=== PATIENT | female | born 1985 | race Two or more races ===

== ENCOUNTER 2016-03-08 20:15 | Emergency (ER) | payer OTHER ==
[2016-03-08] MEDS ORDERED: FAMOTIDINE 20 MG/NACL 50 ML IV ONE (20:43)
[2016-03-08] MEDS ORDERED: HYDROmorphONE/DILAUDID 1 MG/ML SYR IVP ONE (20:43)
[2016-03-08] MEDS ORDERED: NS 1,000 ML IV ONE ×2 (20:43)
[2016-03-08] MEDS ORDERED: ONDANSETRON 4 MG/2 ML VIAL IVP ONE (20:43)
--- NOTE | 2016-03-08 20:47 | EDPHY ---
[id number] 4d HPI Vomiting and diarrhea. 30-year-old female by private vehicle with a friend. She just returned from [place]. She has had nausea, vomiting and diarrhea since this morning. Multiple episodes of nonbilious, nonbloody vomiting. Multiple episodes of watery diarrhea. She was in [place] with her friend. Her friend contracted the same illness this morning as well. They both ate the same restaurant last night. Denies any bloody stool. No fever. No significant abdominal pain. ROS: Constitutional: No fever, no chills. No weakness. Eyes: No discharge. No changes in vision. ENT: No sore throat. No nasal congestion or rhinorrhea. Respiratory: No cough. No shortness of breath. Cardiac: No chest pain, no palpitations. Gastrointestinal: As above. Genitourinary: No hematuria. No dysuria or increased frequency with urination. Musculoskeletal: No back pain. No neck pain. No myalgias or arthralgias. Skin: No rashes. Neurological: No headache. No focal weakness or altered sensation. Past medical history: None. Social history: Here with a friend. Nonsmoker. Physical Exam: General Appearance: Alert, no distress. This patient is responding to questions appropriately and in full sentences. This patient appears well- hydrated and well-nourished. Eyes: Pupils equal and round no pallor or injection. No lid edema, erythema or injection. Gastrointestinal: Abdomen is soft and nontender, no masses, bowel sounds normal. No focal tenderness at McBurney's point. No Jack sign. Neurological: Motor sensory function is grossly intact. Cranial nerves are normal. Gait is normal. Skin: Warm and dry, no rashes. Musculoskeletal: Neck is supple and nontender. Extremities are symmetrical. All joints range without pain or impingement. Psychiatric: No agitation. No depression. Database: EKG: Imaging: Procedures: Emergency department course: IV placed. She was placed on a monitor. She was started on IV normal saline with 1-2 L to be given over the next 1-2 hours. She was initially given 4 mg of IV Zofran and 20 mg of IV Pepcid. She was given 0.25 mg of IV hydromorphone to slow her diarrhea. 9:00 p.m., patient was just started on her IV fluids. Care was turned over to Dr. Beti Bowden at this time. Expected disposition is discharge to home. Differential Diagnosis: The differential diagnosis on this patient includes but is not limited to food borne illness, traveler's diarrhea, viral gastroenteritis. Appendicitis, cholecystitis, bowel obstruction, other surgical etiology unlikely. This represents a partial list of diagnoses considered. These considerations are based on history, physical exam, past history, reassessment and diagnostic testing. (Michael Everett) Constitutional: Initial Vital Signs Temperature (C) 37.1 C 03/08/16 20:19 Heart Rate 73 03/08/16 20:19 Respiratory Rate 20 03/08/16 20:19 Blood Pressure 125/68 H 03/08/16 20:19 O2 Sat (%) 98 03/08/16 20:19 O2 Delivery Mode Room Air Allergies/Adverse Reactions: No Known Allergies Allergy (Unverified 03/08/16 20:18) Home Medications: Medication Instructions Recorded Control Pill 09/09/15 Hydrocodone/APAP 5/325 [Buchtel 1 each PO Q4-6PRN PRN #11 tab 09/09/15 5/325 (*)] Ondansetron Odt [Zofran Odt 4 mg 4 mg PO Q4PRN PRN #10 tab 03/08/16 (*)] - Data Points Laboratory Results: Laboratory Results 03/08/16 20:45 03/08/16 20:45 Medications Given: Discontinued Medications Hydromorphone HCl (Dilaudid) 0.25 mg IVP EDNOW ONE Stop: 03/08/16 20:44 Last Admin: 03/08/16 20:58 Dose: 0.25 mg Sodium Chloride (Ns) 1,000 mls @ 0 mls/hr IV ONCE ONE PRN Reason: Wide Open Stop: 03/08/16 20:44 Last Admin: 03/08/16 20:58 Dose: 1,000 mls Sodium Chloride (Ns) 1,000 mls @ 0 mls/hr IV ONCE ONE PRN Reason: Wide Open Stop: 03/08/16 20:44 Last Admin: 03/08/16 20:59 Dose: 1,000 mls Famotidine/Sodium Chloride (Pepcid 20 Mg (Premix)) 50 mls @ 200 mls/hr IV EDNOW ONE Stop: 01/16/17 20:57 Last Admin: 03/08/16 20:58 Dose: 50 mls Ondansetron HCl (Zofran) 4 mg IVP EDNOW ONE Stop: 03/08/16 20:44 Last Admin: 03/08/16 20:59 Dose: 4 mg Departure - Departure Disposition: Home, Routine, Self-Care Clinical Impression: Vomiting and diarrhea Condition: Good Instructions: Gastroenteritis (ED) Additional Instructions: Read and follow provided instructions. Follow-up with your primary care physician in 1-2 days for re-evaluation as needed. Take medication as prescribed for nausea. Return to the emergency department for vomiting and inability to keep fluids down despite medications, worsening abdominal pain or other serious concerns. Referrals: Helen Santos RN, SALES AUDIT CLERK [Primary Care Provider] - As per Instructions Prescriptions: Ondansetron Odt [Zofran Odt 4 mg (*)] 4 mg PO Q4PRN PRN #10 tab PRN Reason: For Nausea & Vomiting
[2016-03-08 20:58] LABS: % IMMATURE GRANULYOCYTES 0.3 % (0.0-1.1); ABSOLUTE IMMATURE GRANULOCYTES 0.03 10^3/uL (0.00-0.10); ADD DIFF? NO; ADD MORPH? NO; ADD SCAN? NO; ATYPICAL LYMPHOCYTE FLAG 10 (0-99); FRAGMENT RBC FLAG 0 (0-99); HEMATOCRIT 43.7 % (38.0-47.0); HEMOGLOBIN 14.8 g/dL (12.6-16.3); LEFT SHIFT FLG 0 (0-99); LIPEMIA HEMOLYSIS FLAG 90 (0-99); MEAN CELL HEMOGLOBIN 31.2 pg (27.9-34.1); MEAN CELL HEMOGLOBIN CONCENTR. 33.9 g/dL (32.4-36.7); MEAN CELL VOLUME 92.2 fL (81.5-99.8); MEAN PLATELET VOLUME 10.1 fL (8.7-11.7); PLATELET CLUMPS FLAG 0 (0-99); PLATELET COUNT 265 10^3/uL (150-400); RED BLOOD CELL COUNT 4.74 10^6/uL (4.18-5.33)
[2016-03-08 21:11] LABS: ANION GAP 13 mEq/L (8-16); CALCIUM 9.3 mg/dL (8.5-10.4); CARBON DIOXIDE 24 mEq/l (22-31); CHLORIDE 97 mEq/L (97-110); CREATININE 0.6 mg/dL (0.6-1.0); GLOMERULAR FILTRATION RATE > 60; GLUCOSE 113 mg/dL (70-100); POTASSIUM 3.9 mEq/L (3.5-5.2); SODIUM 134 mEq/L (134-144)
[2016-03-08 22:38] VITALS: RESP 16
[2016-03-08 22:58] VITALS: BP 118/65; PULSE 69; TEMP 98.4; O2SAT 98
== END 2016-03-08 22:58 | disposition home or self-care (01) ==
DX: R11.10 Vomiting, unspecified (principal); R19.7 Diarrhea, unspecified
CPT/HCPCS: 96365; J1170; J2405

== ENCOUNTER 2016-11-27 09:44 | Inpatient (IN) | payer OTHER ==
--- NOTE | 2016-11-27 10:13 | EDPHY ---
H & P Stated Complaint: needs help with mental health problems Source: Patient, Family (mother), RN/MD - Personal History LMP (Females 10-55): 22-28 Days Ago Current Tetanus Diphtheria and Acellular Pertussis (TDAP): Yes - Medical/Surgical History Hx Asthma: No Hx Chronic Respiratory Disease: No Hx Diabetes: No Hx Cardiac Disease: No Hx Renal Disease: No Hx Cirrhosis: No Hx Alcoholism: No Hx HIV/AIDS: No Hx Splenectomy or Spleen Trauma: No Other PMH: PMDD - Social History Smoking Status: Never smoked Time Seen by Provider: 11/27/16 10:12 HPI/ROS: HPI: This is a 31-year-old female who presents with Chief Complaint: Suicidal ideations Location: Quality: Suicidal ideation Duration: 1 week Signs and Symptoms:+ insomnia, + uncontrolled crying spells, + anorexia, + suicidal ideations with a plan, no homicidal ideations, no hallucinations Timing: Acute on chronic, rapidly worsening Severity: Moderate to severe Context: Patient is brought in by her mother who flew in from work after her daughter for the last week has been uncontrolled crying, unable to attend her job, sleeping for long periods at a time, not eating at all, unable to organize her thoughts that is rapidly worsened over the last week. She has had multiple thoughts of ending her life and voices to me she wants to . She reports that she has thought of cutting her wrists and as well as taking pills. She is unable to attend her job this week. She has seen her therapist outpatient 4 times over the last 10 days with worsening of symptoms. Patient's mother/ therapist are deeply concerned for patient's well-being and safety. Modifying Factors: outpatient therapy Comment: ROS: see HPI Constitutional: No fever, no chills, no weight loss Eyes: No blurred vision Respiratory: No shortness of breath, no cough Cardiovascular: No chest pain Gastrointestinal: No nausea, no vomiting, no diarrhea Genitourinary: No dysuria Extremities: No myalgias Neurologic: No weakness, no numbness Skin: No rashes Hematologic: No bruising, no bleeding MEDICAL/SURGICAL/SOCIAL HISTORY: Medical history: PMDD Surgical history: Denies Social history: Employed, adopted-family history unknown CONSTITUTIONAL: Crying uncontrollably, sitting on legs rocking back and forth on ED stretcher; tidy appearance, awake and alert, no obvious distress HEENT: Atraumatic and normocephalic, PERRL, EOMI. Tympanic membranes clear. Oropharynx clear, no exudate and moist pink mucosa. Airway patent. No lymphadenopathy. No meningismus. Cardiovascular: Normal S1/S2, regular rate, regular rhythm, without murmur rub or gallop. PULMONARY/CHEST: Symmetrical and nontender. Clear to auscultation bilaterally. Good air movement. No accessory muscle usage. ABDOMEN: Soft, nondistended, nontender, no rebound, no guarding, no peritoneal signs, no masses or organomegaly. No CVAT. EXTREMITIES: 2/2 pulses, no deformities, no clubbing, no cyanosis or edema. NEUROLOGICAL: no focal neuro deficits. GCS 15. SKIN: Warm and dry, no erythema. no rash. Good capillary refill. PSYCH: Poor eye contact, + flight of ideas, disorganized thought process, good insight and poor judgment, no auditory and visual command hallucinations, + suicidal ideation with a plan, no homicidal ideation, no paranoia (Kathrin,Terra) Constitutional: Initial Vital Signs Temperature (C) 36.8 C 11/27/16 09:49 Heart Rate 64 11/27/16 09:49 Respiratory Rate 20 11/27/16 09:49 Blood Pressure 143/78 H 11/27/16 09:49 O2 Sat (%) 98 11/27/16 09:49 O2 Delivery Mode Room Air Allergies/Adverse Reactions: No Known Allergies Allergy (Verified 11/27/16 09:51) Home Medications: Medication Instructions Recorded Calcium Carbonate/Vitamin D3 1 each PO BIDMEAL 11/27/16 [Calcium 500-Vit D3 200 Tablet] Ethinyl Estradiol/Drospirenone 1 tab PO DAILY 11/27/16 [Loryna 3 mg-0.02 mg Tablet] FLUoxetine [Prozac 10 MG (*)] 10 mg PO DAILY 11/27/16 Magnesium Oxide [Magnesium] 400 mg PO HS 11/27/16 Propranolol HCl [Inderal 10mg (*)] 10 mg PO BID PRN 11/27/16 Medical Decision Making ED Course/Re-evaluation: Labs and urinalysis ordered 1025: Patient placed on M1 hold due to suicidal ideation. Given IV Valium as danger to self with moderate relief. 1150; labs and urinalysis reviewed; medically clear for psych evaluation 1350: Psych has evaluated patient and recommends inpatient treatment at [address] [place] [address] which I agree for severe major depression and suicidal ideation. (Sharmaine Pinon) Differential Diagnosis: Altered mental status including but not limited to hypoglycemia, infectious process, electrolyte abnormality, head injury and intoxicants. (Sharmaine Pinon) Other Provider: The patient was evaluated and managed by the Physician Center Machine Set Up Operator/ Nurse Practitioner. I discussed the patient's presentation and course with the midlevel provider with them and agree with the evaluation. My co-signature indicates that I have reviewed this chart and I agree with the findings and plan of care as documented. I am the secondary supervising physician. Patient's care was assumed by Dr. Errol Ortiz at change of shift. (Mya Oliveros) The patient was accepted at [address] [place] [address] and transfer paperwork completed. (Errol Ortiz) - Data Points Laboratory Results: Laboratory Results 11/27/16 10:20 11/27/16 10:20 Medications Given: Discontinued Medications Diazepam (Valium Injection) 5 mg IVP EDNOW ONE Stop: 11/27/16 10:27 Last Admin: 11/27/16 10:34 Dose: 5 mg Fluoxetine HCl (Prozac) 20 mg PO DAILY MICAH Stop: 05/27/17 08:59 Last Admin: 11/28/16 08:19 Dose: 20 mg Haloperidol Lactate (Haldol Injection) 5 mg IV EDNOW ONE Stop: 11/27/16 10:26 Last Admin: 11/27/16 12:08 Dose: Not Given Haloperidol Lactate (Haldol Injection) 5 mg IVP EDNOW ONE Stop: 11/27/16 12:25 Last Admin: 11/27/16 14:00 Dose: Not Given Magnesium Oxide (Magnesium Oxide) 400 mg PO HS MICAH Stop: 05/26/17 20:59 Last Admin: 11/27/16 19:52 Dose: 400 mg Melatonin (Melatonin) 3 - 6 mg PO HS PRN PRN Reason: Sleep/Insomnia Stop: 05/26/17 17:21 Last Admin: 11/27/16 21:44 Dose: 6 mg Olanzapine (Olanzapine) 5 mg PO Q4H PRN PRN Reason: Agitation, Psychosis Stop: 05/26/17 17:21 Last Admin: 11/27/16 23:45 Dose: 5 mg Propranolol HCl (Inderal) 10 mg PO BID PRN PRN Reason: PANIC ATTACKS Stop: 05/26/17 17:19 Last Admin: 11/27/16 21:44 Dose: 10 mg Departure - Departure Disposition: [facility] IP Clinical Impression: Suicidal ideations, Severe major depression Condition: Good
[2016-11-27] MEDS ORDERED: HALOPERIDOL LACT 5 MG/ML INJ IV ONE (10:25)
[2016-11-27] MEDS ORDERED: DIAZEPAM 10 MG/2 ML SYR IVP ONE (10:26)
[2016-11-27 10:36] LABS: % IMMATURE GRANULYOCYTES 0.3 % (0.0-1.1); ABSOLUTE IMMATURE GRANULOCYTES 0.03 10^3/uL (0.00-0.10); ADD DIFF? NO; ADD MORPH? NO; ADD SCAN? NO; ATYPICAL LYMPHOCYTE FLAG 20 (0-99); FRAGMENT RBC FLAG 0 (0-99); HEMATOCRIT 41.4 % (38.0-47.0); HEMOGLOBIN 14.1 g/dL (12.6-16.3); LEFT SHIFT FLG 0 (0-99); LIPEMIA HEMOLYSIS FLAG 90 (0-99); MEAN CELL HEMOGLOBIN 31.3 pg (27.9-34.1); MEAN CELL HEMOGLOBIN CONCENTR. 34.1 g/dL (32.4-36.7); MEAN PLATELET VOLUME 9.9 fL (8.7-11.7); PLATELET CLUMPS FLAG 0 (0-99); PLATELET COUNT 323 10^3/uL (150-400); RED CELL DISTRIBUTION WIDTH 12.1 % (11.5-15.2)
[2016-11-27 10:59] LABS: ANION GAP 13 mEq/L (8-16); CALCIUM 10.1 mg/dL (8.5-10.4); CARBON DIOXIDE 19 mEq/l (22-31); CHLORIDE 106 mEq/L (97-110); CREATININE 0.6 mg/dL (0.6-1.0); ETHANOL SERUM < 10 mg/dL (0-10); GLOMERULAR FILTRATION RATE > 60; GLUCOSE 82 mg/dL (70-100); POTASSIUM 4.3 mEq/L (3.5-5.2); SALICYLATE < 1.0 mg/dL (2.0-20.0); SODIUM 138 mEq/L (134-144)
[2016-11-27] MEDS ORDERED: HALOPERIDOL LACT 5 MG/ML INJ IVP ONE (12:24)
[2016-11-27] MEDS ORDERED: ACETAMINOPHEN 325 MG TAB PO PRN (17:18)
[2016-11-27] MEDS ORDERED: MAG HYDROX/AL HYDROX/SIMETH 30 ML UDCUP PO PRN (17:18)
[2016-11-27] MEDS ORDERED: NICOTINE POLACRILEX 2 MG GUM B PRN (17:18)
[2016-11-27] MEDS ORDERED: MAGNESIUM HYDROXIDE 30 ML UDCUP PO PRN (17:18)
[2016-11-27] MEDS ORDERED: LORazepam 0.5 MG TAB PO PRN (17:18)
[2016-11-27] MEDS ORDERED: PROPRANOLOL HCL 10 MG TAB PO PRN (17:20)
[2016-11-27] MEDS ORDERED: MELATONIN 3 MG TAB PO PRN (17:22)
[2016-11-27] MEDS ORDERED: OLANZapine 5 MG TAB PO PRN (17:22)
[2016-11-27] MEDS ORDERED: MAGNESIUM OXIDE 400 MG TAB PO SCH (21:00)
[2016-11-28 06:32] VITALS: BP 98/61; PULSE 48; RESP 14; TEMP 97.7; O2SAT 98
[2016-11-28] MEDS ORDERED: FLUoxetine 10 MG CAP PO SCH (09:00)
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
--- NOTE | 2016-11-28 14:34 | BCON ---
[f rep ] BEHAVIORAL HEALTH CONSULTATION INTERNAL MEDICINE CONSULTATION DATE OF CONSULTATION: 11/28/2016 REFERRING PHYSICIAN: Valeriy Merritt MD REASON FOR CONSULTATION: Medical clearance for inpatient behavioral health stay. HISTORY OF PRESENT ILLNESS: This patient came to the emergency department accompanied by her mother due to increasing depression over a period of a week or more with suicidal ideation. She was evaluated by the mental health team and admitted for further psychiatric care. She currently is without complaints and reports that she thinks she is going to be discharged today. PAST MEDICAL HISTORY: 1. Premenstrual dysphoric disorder. 2. Depression. PAST SURGICAL HISTORY: She denies any history of surgeries. MEDICATIONS: Prior to admission: 1. Magnesium oxide 400 mg p.o. at bedtime. 2. Calcium carbonate/vitamin-D 500/200 one p.o. twice daily. 3. Propranolol 10 mg p.o. twice daily p.r.n. 4. Fluoxetine 10 mg p.o. daily. 5. Ethinyl estradiol/drospirenone 1 tab p.o. daily. ALLERGIES: There are no known drug allergies. SOCIAL HISTORY: She lives with roommates. She is a nonsmoker. She uses occasional alcohol. She has been using marijuana to try to improve her appetite. She has a dog [employer]. FAMILY HISTORY: She is adopted and does not know her family history. REVIEW OF SYSTEMS: She reports weight loss and decreased appetite. She denies feeling excessively hot or cold. She denies sweats. She denies tremors. She denies change in her bowel habits. Otherwise, a 10-point review of systems is negative. PHYSICAL EXAM: VITAL SIGNS: Blood pressure is 98/61, heart rate is 48, respiratory rate is 14, oxygen saturation is 98% on room air, temperature is 36.5 degrees centigrade. She was sleeping when these were obtained. Her weight is 52.2 kg for a body mass index of 19.1. GENERAL: This is a thin woman who appears her chronologic age, cooperative and in no acute distress. HEENT: Extraocular movements are intact. Pupils are equal, round, and reactive to light. Mucous membranes are moist. Dentition is in good condition. She has an uncrowded airway, Mallampati class 1. NECK: Supple. HEART: There is regular rate and rhythm, with no murmurs, rubs, or gallops. LUNGS: Are clear to auscultation bilaterally. ABDOMEN: Soft, nontender, nondistended with normoactive bowel sounds. EXTREMITIES: There is no cyanosis , clubbing, or edema. NEUROLOGIC: She is alert and oriented x3. Cranial nerves 2-12 are grossly intact. There is no focal weakness. Sensation is intact to light touch. Gait is within normal limits. LABORATORY STUDIES: Drawn in the emergency department: CBC revealed an elevated white count at 10.36. It was predominantly neutrophils with an absolute neutrophil count of 6.65. There was no left shift. Serum chemistry revealed a slightly low carbon dioxide at 19. Otherwise, renal function and electrolytes were within normal limits. Beta hCG was negative for . Toxicology screen in the serum was negative for salicylates, acetaminophen or ethyl alcohol. Toxicology screen in the urine was non-negative for marijuana but otherwise negative for substances of abuse. ASSESSMENT AND PLAN: 1. Mental health issues pending further evaluation per Psychiatry and the mental health team. 2. Weight loss with no symptoms referable to the thyroid. Advise observation as her depression is treated. If she does not return to normal appetite, then further investigations could be done with her primary care provider. I see no medical contraindications to this patient's stay on the inpatient behavioral health unit, or to any psychiatric medications or procedures. Thank you very much for including me in the care of this patient. Please do not hesitate to contact me or the hospitalist service should there be a need for further medical evaluation. /[id number]/MODL MTDD
== END 2016-11-28 13:43 | disposition home or self-care (01) | DRG 880 ==
LOC: BBEH 16:48
PROVIDERS: ADMIT Specialist; ATTEND Specialist
DX: R45.851 Suicidal ideations (principal); F32.2 Major depressive disorder, single episode, severe without psychotic features; F32.81 Premenstrual dysphoric disorder; F12.90 Cannabis use, unspecified, uncomplicated
CPT/HCPCS: 80305; 96374; G0480